=== PATIENT | female | born 1965 | race Caucasian/White ===

== ENCOUNTER 2018-12-27 16:52 | Emergency (ER) | payer OTHER ==
--- NOTE | 2018-12-27 17:01 | PDOC ---
Rapid Medical Evaluation Time Seen by Provider: 12/27/18 16:58 Medical Evaluation: 12/27/18 16:59 I have performed a brief in-person evaluation of this patient. The patient presents with a chief complaint of: knee pain since Tuesday Pertinent physical exam findings: known tibial plateau fracture I have ordered the following: nothing The patient will proceed to the ED for further evaluation. Discharge Disposition - Diagnosis Tibial fracture - Referrals - Patient Instructions - Post Discharge Activity
[2018-12-27 17:02] VITALS: BP 159/64; PULSE 89; TEMP 98.5; BMI 34.3
--- NOTE | 2018-12-27 17:50 | PDOC ---
History of Present Illness - General Chief Complaint: Injury Stated Complaint: FALL Time Seen by Provider: 12/27/18 16:58 - History of Present Illness Initial Comments: 12/27/18 17:44 53-year-old female without comorbidities presents for evaluation of right knee pain. She states she was in [place] fell and fractured her tibial plateau. She comes in with x-rays that demonstrated a posterior lateral tibial plateau fracture. Past History - Past Medical History Allergies/Adverse Reactions: Allergies Allergy/AdvReac Type Severity Reaction Status Date / Time No Known Allergies Allergy Verified 12/27/18 17:02 Home Medications: Ambulatory Orders Aspirin [ASA -] 81 mg PO DAILY #30 tab.chew 12/27/18 Oxycodone HCl/Acetaminophen [Percocet 5-325 mg Tablet] 1 - 2 tab PO Q4H #20 tablet MDD 8 12/27/18 COPD: No Diabetes: Yes HTN: Yes Hypercholesterolemia: Yes - Suicide/Smoking/Psychosocial Hx Smoking History: Never smoked Information on smoking cessation initiated: No Hx Alcohol Use: No Drug/Substance Use Hx: No Review of Systems - Review of Systems Musculoskeletal: Yes: Joint Pain *Physical Exam - Vital Signs Last Vital Signs Temp Pulse Resp BP Pulse Ox 98.5 F 89 17 159/64 98 12/27/18 17:00 12/27/18 17:00 12/27/18 17:00 12/27/18 17:00 12/27/18 17:00 - Physical Exam Comments: 12/27/18 17:44 Right knee skin color and temperature are normal range of motion is limited. There is diffuse tenderness moderate swelling thigh and calf are tender. She is neurovascularly intact. Stability not tested. 12/27/18 17:56 12/27/18 19:04 No pain with PROM of the toes and ankle Medical Decision Making - Medical Decision Making 12/27/18 17:45 Nonweightbearing with knee immobilizer and crutches, Percocet sent to patient pharmacy. Orthopedic follow-up stressed. 12/27/18 18:[address] with Ortho, Discussed s/s of compartment syndrome. Pt will be discharged with rogers wrap and knee immobilizer NWB w crutches f/u with ortho in 1-2 days Encouraged ice and elevation. 12/27/18 19:05 *DC/Admit/Observation/Transfer Diagnosis at time of Disposition: Tibial fracture - Discharge Dispostion Disposition: HOME Condition at time of disposition: Stable Decision to Admit order: No - Prescriptions Prescriptions: Oxycodone HCl/Acetaminophen [Percocet 5-325 mg Tablet] 1 - 2 tab PO Q4H #20 tablet MDD 8 - Referrals Referrals: Derek Villatoro DO [Staff Physician] - - Patient Instructions Additional Instructions: Remain nonweightbearing with the knee immobilizer and the Rogers wrap. You may remove the knee immobilizer to apply ice over the Rogers wrap. Return to the emergency room for pain out of proportion. Please take the narcotic pain medication as directed. Follow-up with orthopedic surgery in 1-2 days for further evaluation and treatment options. Asprin 81 mg's daily - Post Discharge Activity
== END 2018-12-27 19:59 | disposition home or self-care (01) ==
LOC: JERFT 16:52
PROC: 2W3QXYZ Immobilization of Right Lower Leg using Other Device (ICD-10-PCS; principal; 2018-12-27)
DX: S82.141D Displaced bicondylar fracture of right tibia, subsequent encounter for closed fracture with routine healing (principal); W19.XXXD Unspecified fall, subsequent encounter
CPT/HCPCS: 73700-TC-RT; 93971-TC; 99282-25